=== PATIENT | male | born 2000 | race Caucasian/White ===

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

== ENCOUNTER 2019-04-30 08:55 | Emergency (ER) | payer OTHER ==
[2019-04-30 09:04] VITALS: TEMP 97.8
--- NOTE | 2019-04-30 09:26 | ED ---
Fall HPI - General Chief Complaint: Fall Stated Complaint: fall, right leg Time Seen by Provider: 04/30/19 09:07 Source: patient, RN notes reviewed, old records reviewed Mode of arrival: ambulatory - History of Present Illness Initial Comments: Patient is a 18-year-old male who presents emergency department today with right knee injury after falling off a skateboard last night. Patient reports that when he jumped off a skateboard he twisted his knee. He complains of some pain on the lateral aspect and the posterior aspect of his knee. He reports last night he ice it and take anti-inflammatory medication. Patient agrees able to bear weight and denies any significant ankle pain or foot pain. Patient states that he has had no previous significant knee injuries. - Related Data Home Medications Medication Instructions Recorded Confirmed Ibuprofen [Motrin] 200 mg PO Q6HR PRN 05/03/16 10/13/16 Loratadine [Claritin] 10 mg PO DAILY 05/03/16 10/13/16 Previous Rx's Medication Instructions Recorded Ondansetron Odt [Zofran ODT] 4 mg PO Q8HR PRN #20 tab 06/01/18 Ibuprofen [Motrin] 600 mg PO Q8HR PRN #20 tab 04/30/19 Allergies Allergy/AdvReac Type Severity Reaction Status Date / Time No Known Allergies Allergy Verified 04/30/19 09:03 Review of Systems ROS Statement: Those systems with pertinent positive or pertinent negative responses have been documented in the HPI. ROS Other: All systems not noted in ROS Statement are negative. Past Medical History Past Medical History: No Reported History History of Any Multi-Drug Resistant Organisms: None Reported Past Surgical History: No Surgical Hx Reported Past Psychological History: No Psychological Hx Reported Smoking Status: Never smoker Past Alcohol Use History: None Reported Past Drug Use History: None Reported General Exam - General Exam Comments Initial Comments: This is a 18-year-old male. Alert and oriented 3. Patient appears in no significant distress. Limitations: no limitations General appearance: alert, in no apparent distress Head exam: Present: atraumatic, normocephalic, normal inspection Eye exam: Present: normal appearance, PERRL, EOMI. Absent: scleral icterus, conjunctival injection, periorbital swelling ENT exam: Present: normal exam, mucous membranes moist Neck exam: Present: normal inspection. Absent: tenderness, meningismus, lymphadenopathy Respiratory exam: Present: normal lung sounds bilaterally. Absent: respiratory distress, wheezes, rales, rhonchi, stridor Cardiovascular Exam: Present: regular rate, normal rhythm, normal heart sounds. Absent: systolic murmur, diastolic murmur, rubs, gallop, clicks GI/Abdominal exam: Present: soft, normal bowel sounds. Absent: distended, tenderness, guarding, rebound, rigid Extremities exam: Present: normal inspection, full ROM, normal capillary refill. Absent: tenderness, pedal edema, joint swelling, calf tenderness Right Knee exam: Present: normal inspection, full ROM, tenderness (Patient has tenderness over the lateral aspect of the knee.) Lower Leg exam: Present: full ROM Ankle exam: Present: normal inspection, full ROM Foot/Toe exam: Present: normal inspection, full ROM Neurovascular tendon exam: Present: no vascular compromise Gait: observed and normal Back exam: Present: normal inspection Neurological exam: Present: alert, oriented X3, CN II-XII intact Psychiatric exam: Present: normal affect Skin exam: Present: warm, dry, intact, normal color. Absent: rash Course Vital Signs 04/30/19 09:01 Temperature 97.8 F Pulse Rate 62 Respiratory 18 Rate Blood Pressure 169/89 O2 Sat by Pulse 100 Oximetry Medical Decision Making - Medical Decision Making 18-year-old male presents emergency department today for evaluation with concern for right knee pain. Patient reports he was skateboarding last night, fell twisting his right knee. Patient has some tenderness over the lateral aspect of the knee. Some minor effusion was noted. X-ray today shows no evidence of any acute fracture. Discussed likely internal ligament injury involving LCL possible ACL. Patient at this time will be given Chris wrap, and prescription for knee immobilizer. I discussed using crutches and ambulating with those to prevent any further injury to the knee until following up with orthopedic. I discussed Motrin and Tylenol for pain relief. QUESTIONS were answered return parameters were discussed. Given referral for ortho. - Radiology Data Radiology results: report reviewed X-ray shows no acute fracture dislocation of the right knee. Disposition Clinical Impression: Fall, Right knee sprain Disposition: HOME SELF-CARE Condition: Good Instructions (If sedation given, give patient instructions): Knee Sprain (ED) Additional Instructions: Patient is advised to rest, ice, elevate the knee. Follow-up with orthopedic. Patient to take anti-inflammatory medicine as prescribed and ambulate with crutches. Prescriptions: Ibuprofen [Motrin] 600 mg PO Q8HR PRN #20 tab PRN Reason: Pain Is patient prescribed a controlled substance at d/c from ED?: No Referrals: Maurice Reynaga MD [Primary Care Provider] - 1-2 days Efraín Schmidt MD [STAFF PHYSICIAN] - 1-2 days Time of Disposition: 10:12
--- NOTE | 2019-04-30 10:00 | XR ---
EXAMINATION TYPE: XR knee complete RT DATE OF EXAM: 04/30/2019 CLINICAL HISTORY: Fall with subsequent right knee pain TECHNIQUE: Three views of the right knee are obtained. COMPARISON: None. FINDINGS: There is no acute fracture/dislocation evident in right knee. The tri-compartment joint s paces appear within normal limits. Incidentally noted fabella. The overlying soft tissue appears unr emarkable. IMPRESSION: There is no acute fracture or dislocation in the right knee.
[2019-04-30 10:26] VITALS: BP 162/88; PULSE 65; RESP 20
== END 2019-04-30 10:33 | disposition home or self-care (01) ==
LOC: EC 08:55
DX: S83.91XA Sprain of unspecified site of right knee, initial encounter (principal); V00.131A Fall from skateboard, initial encounter; Y93.51 Activity, roller skating (inline) and skateboarding
CPT/HCPCS: 99284

== ENCOUNTER 2020-01-13 13:18 | Emergency (ER) | payer OTHER ==
[2020-01-13 13:23] VITALS: RESP 18; TEMP 98
[2020-01-13] MEDS ORDERED: IBUPROFEN 600 MG TAB PO STA (14:10)
--- NOTE | 2020-01-13 14:28 | XR ---
EXAMINATION TYPE: XR chest 2V DATE OF EXAM: 01/13/2020 COMPARISON: NONE HISTORY: Chest pain TECHNIQUE: Frontal and lateral views of the chest are obtained. FINDINGS: There is no focal air space opacity. No evidence for pneumothorax. No pleural effusion. The cardiac silhouette size is within normal limits. The osseous structures are grossly intact. IMPRESSION: 1. No acute cardiopulmonary process.
[2020-01-13 15:20] VITALS: BP 136/68; PULSE 68
--- NOTE | 2020-01-13 15:21 | ED ---
General Adult HPI - General Chief complaint: Chest Pain Stated complaint: Chest Pain Time Seen by Provider: 01/13/20 13:46 Source: patient, RN notes reviewed Mode of arrival: wheelchair Limitations: no limitations - History of Present Illness Initial comments: 19-year-old male without any significant past medical history presents to the emergency room for chest pain. Patient reports that he was at work lifting heavy metals when he started to have pain in the center of his chest. States it was a sharp pain that was sometimes squeezing. States that by the time he came to the ER he felt much better. Denies fevers. Denies shortness of breath. Denies nausea or vomiting. Cardiac history. Denies pain worsening with exertion. Denies diaphoresis.Patient has no other complaints at this time including shortness of breath, abdominal pain, nausea or vomiting, headache, or visual changes. - Related Data Home Medications Medication Instructions Recorded Confirmed No Known Home Medications 01/13/20 01/13/20 Allergies Allergy/AdvReac Type Severity Reaction Status Date / Time No Known Allergies Allergy Verified 01/13/20 14:32 Review of Systems ROS Statement: Those systems with pertinent positive or pertinent negative responses have been documented in the HPI. ROS Other: All systems not noted in ROS Statement are negative. Past Medical History Past Medical History: No Reported History History of Any Multi-Drug Resistant Organisms: None Reported Past Surgical History: No Surgical Hx Reported Past Psychological History: No Psychological Hx Reported Past Alcohol Use History: None Reported Past Drug Use History: None Reported General Exam Limitations: no limitations General appearance: alert, in no apparent distress Head exam: Present: atraumatic, normocephalic, normal inspection Eye exam: Present: normal appearance, PERRL, EOMI. Absent: scleral icterus, conjunctival injection, periorbital swelling ENT exam: Present: normal exam, mucous membranes moist Neck exam: Present: normal inspection, full ROM. Absent: tenderness, meningismus, lymphadenopathy Respiratory exam: Present: normal lung sounds bilaterally, chest wall tenderness (Patient has anterior chest wall tenderness with palpation.). Absent: respiratory distress, wheezes, rales, rhonchi, stridor Cardiovascular Exam: Present: regular rate, normal rhythm, normal heart sounds. Absent: systolic murmur, diastolic murmur, rubs, gallop, clicks GI/Abdominal exam: Present: soft, normal bowel sounds. Absent: distended, tenderness, guarding, rebound, rigid Course Vital Signs 01/13/20 01/13/20 13:21 15:19 Temperature 98.0 F Pulse Rate 101 H 68 Respiratory 18 18 Rate Blood Pressure 149/88 136/68 O2 Sat by Pulse 100 100 Oximetry EKG Findings - EKG Comments: EKG Findings:: Normal sinus rhythm, ventricular rate 72, WI interval 132, QTC 400 Medical Decision Making - Medical Decision Making Vitals are stable. Patient initially tachycardic and hypertensive however this improved throughout his stay. Likely related to anxiety and pain. Patient has tenderness to the anterior chest wall with palpation. Pain is reproducible. This pain started when patient was lifting heavy objects. No typical features noted. EKG nonischemic. No elevations. Chest x-ray is unremarkable. Pain is consistent with a chest wall pain or costochondritis. Recommended patient to take anti-inflammatories and follow-up with his doctor. He'll return here for any worsening symptoms. Disposition Clinical Impression: Atypical chest pain, Chest wall syndrome Disposition: HOME SELF-CARE Instructions (If sedation given, give patient instructions): Costochondritis (ED) Additional Instructions: Please take Motrin and Tylenol for pain. Please follow-up with your doctor in one to 2 days. Return to the emergency room for any worsening symptoms. Is patient prescribed a controlled substance at d/c from ED?: No Referrals: Maurice Reynaga MD [Primary Care Provider] - 1-2 days Time of Disposition: 15:19
== END 2020-01-13 15:26 | disposition home or self-care (01) ==
LOC: EC 13:18
DX: R07.1 Chest pain on breathing (principal); R07.89 Other chest pain
CPT/HCPCS: 71046; 93005; 99285

== ENCOUNTER → 2020-05-20 | Outpatient (CLI) | payer BC, OTHER ==
--- NOTE | 2020-05-20 15:55 | US ---
EXAMINATION TYPE: US gallbladder DATE OF EXAM: 05/20/2020 COMPARISON: CLINICAL HISTORY: K81.1 Chronic cholecystitis. Patient states having acid reflux. EXAM MEASUREMENTS: Liver Length: 20.3 cm Gallbladder Wall: 0.2 cm CBD: 0.4 cm Right Kidney: 11.6 x 5.5 x 4.9 cm Pancreas: Tail obscured by overlying bowel gas Liver: Enlarged in size Gallbladder: wnl Evidence for sonographic Schmidt's sign: neg CBD: wnl Right Kidney: No hydronephrosis or masses seen IMPRESSION: Hepatomegaly.
== END | disposition home or self-care (01) ==
LOC: RADUSWWP 08:08
PROVIDERS: ATTEND Surgery Plastic and Reconstructive Surgery
DX: R16.0 Hepatomegaly, not elsewhere classified (principal)
CPT/HCPCS: 76705

== ENCOUNTER 2020-05-27 08:11 | Day surgery (SDC) | payer BC, OTHER ==
[2020-05-22 13:10] VITALS: BMI 33.0
--- NOTE | 2020-05-27 07:43 | P.GSHP ---
History of Present Illness H&P Date: 05/27/20 CHIEF COMPLAINT: GERD HISTORY OF PRESENT ILLNESS: The patient is a 19-year-old male who presents reports gastroesophageal reflux disease. Upper endoscopy was offered for further evaluation and management. PAST MEDICAL HISTORY: Please see list. PAST SURGICAL HISTORY: Please see list. MEDICATIONS: Please see list. ALLERGIES: Please see list. SOCIAL HISTORY: No illicit drug use FAMILY HISTORY: No reports of Crohn disease or ulcerative colitis. REVIEW OF ORGAN SYSTEMS: CONSTITUTIONAL: No reports of fevers or chills. GI: Denies any blood in stools or constipation. PHYSICAL EXAM: VITAL SIGNS: Stable GENERAL: Well-developed and pleasant in no acute distress. HEENT: No scleral icterus. Extraocular movements grossly intact. Moist buccal mucosa. NECK: Supple without lymphadenopathy. CHEST: Unlabored respirations. Equal bilateral excursions. CARDIOVASCULAR: Regular rate and rhythm. Distal 2+ pulses. ABDOMEN: Soft, nondistended. MUSCULOSKELETAL: No clubbing, cyanosis, or edema. ASSESSMENT: 1. Gastroesophageal reflux disease PLAN: 1. Recommend proceeding with an upper endoscopy Past Medical History Past Medical History: GERD/Reflux Additional Past Medical History / Comment(s): heartburn for a year, increasing recently History of Any Multi-Drug Resistant Organisms: None Reported Past Surgical History: No Surgical Hx Reported Additional Past Surgical History / Comment(s): wisdom teeth removed Past Anesthesia/Blood Transfusion Reactions: No Reported Reaction Smoking Status: Never smoker Medications and Allergies Home Medications Medication Instructions Recorded Confirmed Type No Known Home Medications 01/13/20 05/22/20 History Allergies Allergy/AdvReac Type Severity Reaction Status Date / Time No Known Allergies Allergy Verified 05/22/20 13:08
[~2020-05-27 08:11] MED LIST: LACTATED RINGERS 1,000 ML IV SCH
[2020-05-27 08:36] VITALS: TEMP 97.1
[2020-05-27] MEDS ORDERED: PROPOFOL 10 MG/ML 20 ML VIAL IV ONE (09:35)
[2020-05-27] MEDS ORDERED: LIDOCAINE 1% INJ 10MG/ML (20 ML MDV) ONE (09:35)
[2020-05-27] MEDS ORDERED: GLYCOPYRROLATE 0.2 MG/ML 2 ML VIAL ONE (09:35)
[2020-05-27 09:54] VITALS: RESP 18
--- NOTE | 2020-05-27 09:54 | P.PCN ---
Date of Procedure: 05/27/20 Description of Procedure: PREOPERATIVE DIAGNOSIS: Gastroesophageal reflux disease. Morbid obesity. POSTOPERATIVE DIAGNOSIS: Morbid obesity. Gastritis. Gastroesophageal reflux disease and erosive esophagitis Gastric polyp OPERATION: Esophagogastroduodenoscopy with biopsies along the gastric body for polyp SURGEON: Josie Wheeler MD ANESTHESIA: MAC. INDICATIONS: The patient is a 19-year-old male who presents with a history of reflux disease. Benefits and risks of the procedure were described. Informed consent was obtained. DESCRIPTION: The patient was brought into the endoscopy suite and laid in the left lateral decubitus position. An Olympus gastroscope was passed along the posterior oroph arynx down to the distal esophagus where the squamocolumnar junction was encountered at 40 cm from the incisors. The stomach was entered and no bile reflux was found. Additional findings are listed below. Biopsies with cold forceps were obtained of the antrum. The first through third portion of the duodenum was examined and unremarkable. Retroflexion of the scope confirmed Hill grade 3 lower esophageal valve. The squamocolumnar junction demonstrated LA grade C erosive esophagitis. The stomach was desufflated. The patient tolerated the procedure well. FINDINGS: Squamocolumnar junction 40 cm from the incisors. Diaphragmatic hiatus at 40 cm. Hill grade 3 lower esophageal valve. LA grade C erosive esophagitis. No active duodenitis. Gastric polyp, 8 mm biopsy at gastric fundus Chronic gastritis RECOMMENDATIONS: Upper endoscopy as needed. Plan - Discharge Summary Discharge Rx Participant: No New Discharge Prescriptions: New Omeprazole [PriLOSEC] 40 mg PO DAILY #14 cap Discharge Medication List Omeprazole [PriLOSEC] 40 mg PO DAILY #14 cap 05/27/20 [Rx] Follow up Appointment(s)/Referral(s): Josie Wheeler MD [STAFF PHYSICIAN] - 06/09/20 Patient Instructions/Handouts: Diet for Stomach Ulcers and Gastritis (ED), Gastroesophageal Reflux Disease (DC) Discharge Disposition: HOME SELF-CARE
[2020-05-27 10:06] VITALS: BP 116/73; PULSE 73
== END 2020-05-27 10:20 | disposition home or self-care (01) ==
LOC: ORWHC2ENDO 08:11
PROVIDERS: ATTEND Surgery Plastic and Reconstructive Surgery
DX: K29.50 Unspecified chronic gastritis without bleeding (principal); K31.7 Polyp of stomach and duodenum; K21.00 Gastro-esophageal reflux disease with esophagitis, without bleeding; E66.01 Morbid (severe) obesity due to excess calories
CPT/HCPCS: 88305; 88342; 88341; 43239; J2001; J2704

== ENCOUNTER 2022-03-18 05:16 | Emergency (ER) | payer BC, OTHER ==
[2022-03-18 05:23] VITALS: BP 155/95; PULSE 94; RESP 18; TEMP 98.1
[2022-03-18] MEDS ORDERED: ACETAMINOPHEN TAB 500 MG TAB PO STA (05:32)
[2022-03-18] MEDS ORDERED: dexAMETHasone 4 MG TAB PO STA (05:32)
[2022-03-18] MEDS ORDERED: AMOXIC-POT CLAV 875-125MG 1 EACH TAB PO STA (05:32)
[2022-03-18] MEDS ORDERED: ACET/COD 300 MG/30 MG STARTER PACK 6 TAB BTL PO STA (05:34)
--- NOTE | 2022-03-18 05:34 | ED ---
General Adult HPI - General Chief complaint: Headache Stated complaint: Headache Time Seen by Provider: 03/18/22 05:23 Source: patient, RN notes reviewed, old records reviewed Mode of arrival: ambulatory Limitations: no limitations - History of Present Illness Initial comments: Patient is a 21-year-old male who presents emergency Department complaining of a headache as well as dental pain. Recently had dental work done for root canal on the left upper part of his jaw. States he is now having some left cheek as well as frontal sinus pain. Has been there for a few days. Denies fevers. Endorses rhinorrhea. Denies cough. Endorses some congestion. Denies any eye tearing or pain. States is a mild headache from this as well. States has been attempting to take 200 mg of Motrin once a day for pain with minimal improvement. Does not see his dentist again until April 02. Presents for relief at this time.. Denies any other acute complaints at this time. - Related Data Previous Rx's Medication Instructions Recorded Omeprazole [PriLOSEC] 40 mg PO DAILY #14 cap 05/27/20 Amoxic-Pot Clav 875-125Mg 1 tab PO Q12HR 7 Days #14 tab 03/18/22 [Augmentin 875-125] Allergies Allergy/AdvReac Type Severity Reaction Status Date / Time No Known Allergies Allergy Verified 03/18/22 05:20 Review of Systems ROS Statement: Those systems with pertinent positive or pertinent negative responses have been documented in the HPI. Review of Systems: CONST: Denies fever EYES: Denies blurry vision ENT: Endorses nasal congestion C/V: Denies Chest pain RESP: Denies shortness of breath GI: Denies abdominal pain : Denies dysuria SKIN: Denies rash. MSK: Denies joint pain. NEURO: Endorses headache ROS Other: All systems not noted in ROS Statement are negative. Past Medical History Past Medical History: GERD/Reflux Additional Past Medical History / Comment(s): heartburn for a year, increasing recently History of Any Multi-Drug Resistant Organisms: None Reported Past Surgical History: No Surgical Hx Reported Additional Past Surgical History / Comment(s): wisdom teeth removed Past Anesthesia/Blood Transfusion Reactions: No Reported Reaction Past Psychological History: No Psychological Hx Reported Smoking Status: Never smoker Past Alcohol Use History: None Reported Past Drug Use History: Marijuana General Exam - General Exam Comments Initial Comments: General: Appears in no acute distress. HEAD: Normal with no signs of head trauma. EYES: PERRLA, EOMI, conjunctiva normal, no discharge. Pupils 3 mm and equal bilaterally. ENT: Hearing grossly intact, normal oropharynx. Left maxillary sinus and frontal sinus mild tenderness to palpation. Gumline appears mildly erythematous on the left upper side. No obvious abscess or infection. Tongue is not swollen. No stridor. Uvula is midline. Posterior oropharynx within normal limits. RESPIRATORY: No respiratory distress C/V: Peripheral pulses 2+ and intact throughout. ABD: Nondistended EXT: No obvious deformity SKIN: No rashes or lesions observed on exposed skin. NEURO: Alert and oriented 4. No focal deficits. Cranial nerves II through XII are intact. Limitations: no limitations Course Vital Signs 03/18/22 05:20 Temperature 98.1 F Pulse Rate 94 Respiratory 18 Rate Blood Pressure 155/95 O2 Sat by Pulse 98 Oximetry Medical Decision Making - Medical Decision Making Based on the patient's presentation and physical exam, I'm concerned for what appears to be dental pain causing a mild left-sided headache in this patient. Supposed to have some mild sinus tenderness. No other acute complaints at this time. Exam is otherwise unremarkable. Vital signs within acceptable limits. He does not see his dentist for 2 weeks. I discussed with him I believe he is likely experiencing pain from his poor left upper dentition but he does have some sinus tenderness and cannot rule out sinus infection at this time. With the dental pain is likely source of that I do want to treat him with antibiotics, as well as a steroid. He was in agreement with this plan. Strict return precautions were instructed. Patient has no evidence of Shiv angina and exam. Normal neurological status, and no concern for cavernous sinus thrombosis at this time. Patient be given a dose of Augmentin prior to discharge as well as a prescription. He will be given a dose of Decadron as well as Tylenol prior to discharge. He will be given a Tylenol 3 starter pack. He was in agreement this plan. Strict return precautions were discussed. I will provide the patient with a prescription for Augmentin. I instructed the patient to follow up with their PCP in the next 1-3 days . I explained that the patient should return to the emergency department if they experience any worsening symptoms. Strict return precautions were discussed with the patient. The patient expressed understanding of these instructions. I answered all questions that the patient had. The patient was discharged home in good condition with their prescriptions and follow up information. Was pt. sent in by a medical professional or institution ([facility] Manuel, [employer], urgent care, hospital, or fci...) When possible be specific @ -No Did you speak to anyone other than the patient for history (EMS, parent, family, police, friend...)? What history was obtained from this source @ -No Did you review nursing and triage notes (agree or disagree)? Why? @ -I reviewed and agree with nursing and triage notes Were old charts reviewed (outside hosp., previous admission, EMS record, old EKG, old radiological studies, urgent care reports/EKG's, fci records)? Report findings @ -No old charts were reviewed Differential Diagnosis (chest pain, altered mental status, abdominal pain women, abdominal pain men, vaginal bleeding, weakness, fever, dyspnea, syncope, headache, dizziness, GI bleed, back pain, seizure, CVA, palpatations, mental health)? @ -Dental infection, headache, sinus infection, URI, viral syndrome, Shiv angina, cavernous sinus thrombosis. This list is not all inclusive. EKG interpreted by me (3pts min.). @ -None done X-rays interpreted by me (1pt min.). @ -None done CT interpreted by me (1pt min.). @ -None done U/S interpreted by me (1pt. min.). @ -None done What testing was considered but not performed or refused? (CT, X-rays, U/S, labs)? Why? @ -To date CT imaging, however patient has no neurological deficits, and I do not believe it is necessary at this time. What meds were considered but not given or refused? Why? @ -None Did you discuss the management of the patient with other professionals (professionals i.e. O[employer] Manuel, [employer] CLERK, lab, RT, psych nurse, renal social worker, dust mill operator, teacher, parking regulation enforcement officer, employment case manager)? Give summary @ -No Was smoking cessation discussed for >3mins.? @ -No Was critical care preformed (if so, how long)? @ -No Were there social determinants of health that impacted care today? How? (Homelessness, low income, unemployed, alcoholism, drug addiction, transportation, low edu. Level, literacy, decrease access to med. care, group home, rehab)? @ -No Was there de-escalation of care discussed even if they declined (Discuss DNR or withdrawal of care, Hospice)? DNR status @ -No What co-morbidities impacted this encounter? (DM, HTN, Smoking, COPD, CAD, Cancer, CVA, ARF, Chemo, Hep., AIDS, mental health diagnosis, sleep apnea, morbid obesity)? @ -None Was patient admitted / discharged? Hospital course, mention meds given and route, prescriptions, significant lab abnormalities, going to OR and other pertinent info. @ -Discharged home. See above. ED course. Undiagnosed new problem with uncertain prognosis? @ -No Drug Therapy requiring intensive monitoring for toxicity (Heparin, Nitro, Insulin, Cardizem)? @ -No Were any procedures done? @ -No Diagnosis/symptom? @ -Dental pain Acute, or Chronic, or Acute on Chronic? @ -Acute Uncomplicated (without systemic symptoms) or Complicated (systemic symptoms)? @ -Uncomplicated Side effects of treatment? @ -No Exacerbation, Progression, or Severe Exacerbation? @ -No Poses a threat to life or bodily function? How? (Chest pain, [place], [place], pneumonia, PE, COPD, DKA, ARF, appy, cholecystitis, CVA, Diverticulitis, Homicidal, Suicidal, threat to staff... and all critical care pts) @ -No Diagnosis/symptom? @ -Headache Acute, or Chronic, or Acute on Chronic? @ -Acute Uncomplicated (without systemic symptoms) or Complicated (systemic symptoms)? @ -Uncomplicated Side effects of treatment? @ -none Exacerbation, Progression, or Severe Exacerbation] @ -no Poses a threat to life or bodily function? @ -no Diagnosis/symptom? @ -Sinus pain Acute, or Chronic, or Acute on Chronic? @ -Acute Uncomplicated (without systemic symptoms) or Complicated (systemic symptoms)? @ -Uncomplicated Side effects of treatment? @ -none Exacerbation, Progression, or Severe Exacerbation] @ -no Poses a threat to life or bodily function? @ -no Disposition Clinical Impression: Pain, dental, Headache, Sinus pain Disposition: HOME SELF-CARE Condition: Good Instructions (If sedation given, give patient instructions): Acute Headache (ED) Prescriptions: Amoxic-Pot Clav 875-125Mg [Augmentin 875-125] 1 tab PO Q12HR 7 Days #14 tab Is patient prescribed a controlled substance at d/c from ED?: No Referrals: None,Stated [Primary Care Provider] - 1-2 days Time of Disposition: 05:33
== END 2022-03-18 05:55 | disposition home or self-care (01) ==
LOC: EC 05:16
DX: K08.89 Other specified disorders of teeth and supporting structures (principal); R51.9 Headache, unspecified; F12.90 Cannabis use, unspecified, uncomplicated
CPT/HCPCS: 99284; J8540

== ENCOUNTER 2024-01-23 08:56 | Emergency (ER) | payer BC, OTHER ==
[2024-01-23 09:02] VITALS: RESP 20
--- NOTE | 2024-01-23 09:36 | ED ---
ENT HPI - General Chief complaint: ENT Stated complaint: swollen tonsils Time Seen by Provider: 01/23/24 09:10 Source: patient, RN notes reviewed Mode of arrival: ambulatory Limitations: no limitations - History of Present Illness Initial comments: Is a 23-year-old male with no significant past medical history presenting to the emergency department for chief complaint of sore throat over the past week. Patient Dors is mild nonproductive cough, rhinorrhea, and congestion as well. States that he had fevers during the first sore throat however these have resolved. He denies abdominal pain, nausea, vomiting, chest pain, shortness of breath. Denies recent antibiotic use. Denies known sick contacts. - Related Data Previous Rx's Medication Instructions Recorded Omeprazole [PriLOSEC] 40 mg PO DAILY #14 cap 05/27/20 Amoxic-Pot Clav 875-125Mg 1 tab PO Q12HR 7 Days #14 tab 03/18/22 [Augmentin 875-125] Allergies Allergy/AdvReac Type Severity Reaction Status Date / Time No Known Allergies Allergy Verified 01/23/24 09:02 Review of Systems ROS Statement: Those systems with pertinent positive or pertinent negative responses have been documented in the HPI. ROS Other: All systems not noted in ROS Statement are negative. Past Medical History Past Medical History: GERD/Reflux Additional Past Medical History / Comment(s): heartburn for a year, increasing recently History of Any Multi-Drug Resistant Organisms: None Reported Past Surgical History: No Surgical Hx Reported Additional Past Surgical History / Comment(s): wisdom teeth removed Past Anesthesia/Blood Transfusion Reactions: No Reported Reaction Past Psychological History: No Psychological Hx Reported Smoking Status: Vaper Past Alcohol Use History: Occasional Past Drug Use History: Marijuana General Exam Limitations: no limitations General appearance: alert, in no apparent distress Eye exam: Present: normal appearance, PERRL, EOMI. Absent: scleral icterus, conjunctival injection, periorbital swelling ENT exam: Present: normal exam, mucous membranes moist Expanded Throat exam: tonsillar erythema, tonsillomegaly. negative: tonsillar exudate Neck exam: Present: normal inspection, lymphadenopathy (anterior cervical, tonsillar). Absent: tenderness, meningismus Respiratory exam: Present: normal lung sounds bilaterally. Absent: respiratory distress, wheezes, rales, rhonchi, stridor Cardiovascular Exam: Present: regular rate, normal rhythm, normal heart sounds. Absent: systolic murmur, diastolic murmur, rubs, gallop, clicks GI/Abdominal exam: Present: soft, normal bowel sounds. Absent: distended, tenderness, guarding, rebound, rigid Extremities exam: Present: normal inspection, full ROM, normal capillary refill. Absent: tenderness, pedal edema, joint swelling, calf tenderness Back exam: Present: normal inspection Neurological exam: Present: alert, oriented X3, CN II-XII intact Course Vital Signs 01/23/24 01/23/24 09:01 11:11 Temperature 98.5 F 98.4 F Pulse Rate 84 81 Respiratory 20 20 Rate Blood Pressure 137/83 131/86 O2 Sat by Pulse 99 99 Oximetry Medical Decision Making - Medical Decision Making Was pt. sent in by a medical professional or institution ([facility] Manuel, [facility]M NURSE, urgent care, hospital, or half-way...) When possible be specific @ -No Did you speak to anyone other than the patient for history (EMS, parent, family, police, friend...)? What history was obtained from this source @ -No Did you review nursing and triage notes (agree or disagree)? Why? @ -I reviewed and agree with nursing and triage notes Were old charts reviewed (outside hosp., previous admission, EMS record, old EKG, old radiological studies, urgent care reports/EKG's, half-way records)? Report findings @ -No old charts were reviewed Differential Diagnosis (chest pain, altered mental status, abdominal pain women, abdominal pain men, vaginal bleeding, weakness, fever, dyspnea, syncope, headache, dizziness, GI bleed, back pain, seizure, CVA, palpatations, mental health, musculoskeletal)? @ -COVID 19, RSV, influenza, pneumonia, acute bronchitis, URI, this list is not all inclusive EKG interpreted by me (3pts min.). @ -None X-rays interpreted by me (1pt min.). @ -None done CT interpreted by me (1pt min.). @ -None done U/S interpreted by me (1pt. min.). @ -None done What testing was considered but not performed or refused? (CT, X-rays, U/S, labs)? Why? @ -None What meds were considered but not given or refused? Why? @ -None Did you discuss the management of the patient with other professionals (tamanna corbin i.e. , PA, [facility] NURSE, lab, RT, psych nurse, nursing home social worker, demolition worker, teacher, landcare officer, disease case manager rn)? Give summary @ -No Was smoking cessation discussed for >3mins.? @ -No Was critical care preformed (if so, how long)? @ -No Were there social determinants of health that impacted care today? How? (Homelessness, low income, unemployed, alcoholism, drug addiction, transportation, low edu. Level, literacy, decrease access to med. care, care home, rehab)? @ -No Was there de-escalation of care discussed even if they declined (Discuss DNR or withdrawal of care, Hospice)? DNR status @ -No What co-morbidities impacted this encounter? (DM, HTN, Smoking, COPD, CAD, Cancer, CVA, ARF, Chemo, Hep., AIDS, mental health diagnosis, sleep apnea, morbid obesity)? @ -None Was patient admitted / discharged? Hospital course, mention meds given and route, prescriptions, significant lab abnormalities, going to OR and other pertinent info. @ -Discharge. 23-year-old male with sore throat congestion. On evaluation patient noted to have bilateral tonsillar erythema and tonsillomegaly with no evidence of exudates. There is no unilateral tonsillar swelling. Patient is not exhibiting symptoms of respiratory distress. No hot potato voice. Patient is right with dose of Decadron and ibuprofen for pain. Testing including Cepheid and strep negative. On reevaluation states that he is feeling somewhat better after medication administration. Discussed with patient bedside that symptoms likely secondary to viral infection and continue supportive treatment at home in addition to increasing. Discussed with Dr. Whittington Undiagnosed new problem with uncertain prognosis? @ -No Drug Therapy requiring intensive monitoring for toxicity (Heparin, Nitro, Insulin, Cardizem)? @ -No Were any procedures done? @ -No Diagnosis/symptom? @ -tonsillitis, Sore throat, viral infection Acute, or Chronic, or Acute on Chronic? @ -Acute Uncomplicated (without systemic symptoms) or Complicated (systemic symptoms)? @ -uncomplicated Side effects of treatment? @ -No Exacerbation, Progression, or Severe Exacerbation? @ -No Poses a threat to life or bodily function? How? (Chest pain, [place], [place], pneumonia, PE, COPD, DKA, ARF, appy, cholecystitis, CVA, Diverticulitis, Homicidal, Suicidal, threat to staff... and all critical care pts) @ -No - Lab Data Lab Results 01/23/24 01/23/24 Range/Units 09:39 09:39 Influenza Type A (PCR) Not Detected (Not Detectd) Influenza Type B (PCR) Not Detected (Not Detectd) RSV (PCR) Not Detected (Not Detectd) SARS-CoV-2 (PCR) Not Detected (Not Detectd) Group A Strep (PCR) NOT DETECTED (Not Detectd) Disposition Clinical Impression: Tonsillitis, Sore throat (viral) Disposition: HOME SELF-CARE Condition: Good Instructions (If sedation given, give patient instructions): Tonsillitis (ED) Additional Instructions: Please return to the Emergency Department if symptoms worsen or any other concerns. Use Tylenol and/or Motrin as needed for symptomatic relief. Increase hydration. Is patient prescribed a controlled substance at d/c from ED?: No Referrals: Giancarlo Rees MD [Primary Care Provider] - 1-2 days Time of Disposition: 10:49
[2024-01-23] MEDS: IBUPROFEN 800 MG TAB PO STA (09:45)
[2024-01-23] MEDS: DEXAMETHASONE SOD PHOSPHATE 10 MG/ML 1 ML VIAL IM STA (09:45)
[2024-01-23 11:13] VITALS: BP 131/86; PULSE 81; TEMP 98.4
== END 2024-01-23 11:35 | disposition home or self-care (01) ==
LOC: EC 08:56
DX: J03.90 Acute tonsillitis, unspecified (principal); F17.290 Nicotine dependence, other tobacco product, uncomplicated
CPT/HCPCS: 87651; 87636; 99283; 96372; J1100